=== PATIENT | female | born 1980 | race Caucasian/White ===

== ENCOUNTER 2018-08-13 12:04 | Emergency (ER) | payer MEDICAID ==
[~2018-08-13] VITALS: Ht 152.4 cm; Wt 78.6 kg
[2018-08-13 14:56] VITALS: BP 126/75
== END 2018-08-13 14:59 | disposition home or self-care (01) ==
LOC: EMS 12:06
DX: M79.602 Pain in left arm (principal); M79.89 Other specified soft tissue disorders
CPT/HCPCS: 93971